=== PATIENT | female | born 1990 | race Caucasian/White ===

== ENCOUNTER 2018-09-15 07:02 | Inpatient (IN) | payer MEDICAID ==
[2018-09-15 07:38] LABS: APPEARANCE,URINE TURBID; BILIRUBIN,URINE NEGATIVE (NEGATIVE); COLOR,URINE YELLOW; GLUCOSE, URINE NEGATIVE (NEGATIVE); KETONES,URINE 20 mg/dL (NEGATIVE); LEUKOCYTE ESTERASE,URINE MODERATE (NEGATIVE); NITRITE,URINE NEGATIVE (NEGATIVE); PROTEIN,URINE 100 mg/dL (NEGATIVE); URINE SPECIFIC GRAVITY 1.018; UROBILINOGEN,URINE NEGATIVE mg/dL (<2.0)
[2018-09-15 07:58] LABS: URINE AMPHETAMINES SCREEN NEGATIVE; URINE BARBITURATES SCREEN NEGATIVE; URINE BENZODIAZEPINES SCREEN NEGATIVE; URINE MARIJUANA (THC) SCREEN NEGATIVE; URINE METHADONE SCREEN NEGATIVE; URINE PHENCYCLIDINE SCREEN NEGATIVE
[2018-09-15 08:08] LABS: URINE COCAINE SCREEN UNCONFIRMED POSITIVE
[2018-09-15] MEDS: RINGERS SOLUTION,LACTATED 1,000 ML IV PRN ×3 (08:27→13:47)
[2018-09-15] MEDS ORDERED: ONDANSETRON HCL INJ/PF 4 MG/2 ML SDV ONE (08:33)
[2018-09-15] MEDS ORDERED: MAG HYDROX/AL HYDROX/SIMETH SUSP 30 ML UDCUP ONE ×2 (09:02→17:57)
[2018-09-15] MEDS ORDERED: MAG HYDROX/AL HYDROX/SIMETH SUSP 30 ML UDCUP PO ONE (09:03)
[2018-09-15] MEDS ORDERED: NALBUPHINE HCL INJ 10 MG/1 ML AMPULE ONE (09:32)
[2018-09-15 09:39] LABS: ABSOLUTE MONOCYTES (AUTO) 1.2 10^3/uL (0.1-1.4); BASOPHILS % (AUTO) 0.1 % (0-2); HEMATOCRIT 34.5 % (36.0-47.0); HEMOGLOBIN 11.8 g/dL (12.0-15.5); LYMPHOCYTES % (AUTO) 6.8 % (13-45); MEAN CORPUSCULAR HEMOGLOBIN 30.9 pg (27.0-33.4); MEAN CORPUSCULAR HGB CONC 34.3 g/dL (32.0-36.0); MEAN CORPUSCULAR VOLUME 90 fl (80-97); MONOCYTES % (AUTO) 7.8 % (3-13); PLATELET COUNT 220 10^3/uL (150-450); RED BLOOD COUNT 3.83 10^6/uL (3.72-5.28); RED CELL DISTRIBUTION WIDTH 13.2 % (11.5-14.0); SEGMENTED NEUTROPHILS % (AUTO) 85.3 % (42-78); TOTAL CELLS COUNTED % (AUTO) 100 %; WHITE BLOOD COUNT 15.2 10^3/uL (4.0-10.5)
[2018-09-15 10:29] LABS: RUBELLA INTERPRETATION POSITIVE
[2018-09-15] MEDS ORDERED: MISOPROSTOL 0.2 MG TABLET ONE (12:11)
[2018-09-15] MEDS ORDERED: OXYTOCIN 10 UNIT/ML VIAL ONE (12:11)
[2018-09-15] MEDS ORDERED: LIDOCAINE 1% INJ-PF (10 MG/ML) 30 ML SDV ONE (12:11)
--- NOTE | 2018-09-15 12:11 | Admission Physical ---
Datetime Report Generated by CPN: 09/15/2018 12:10 CURRENT ADMISSION Chief Complaint: Uterine Contractions Indication for Induction: Not Applicable Admit Impression : Term, Intrauterine ; Active Labor Admit Plan: Admit to Unit; Initiate Labor Protocol ALLERGIES Medication Allergies: Yes Medication Allergies: Sulfa (Sulfonamide Antibiotics) (09/15/2018) Latex: No Latex Allergies Food Allergies: n/a Environmental Allergies: n/a OBSTETRICAL HISTORY EDC: 09/20/2018 00:00 : 7 Para: 3 Term: 2 : 0 SAB: 2 IAB: 1 Ectopic: 0 Livin Cesareans: 0 VBACs: 0 Multiple Births: 0 Gestational Diabetes: No Rh Sensitization: No Incompetent Cervix: No JACKIE: No Infertility: No ART Treatment: No Uterine Anomaly: No IUGR: No Hx Previous C/S: No Macrosomia: No Hx Loss/Stillborn: No PIH: No Hx : No Placenta Previa/Abruption: No Depression/PP Depression: No PTL/PROM: No Post Hemorrhage: No Current Procedures: Ultrasound Obstetrical History Comments: G1- term G2- term G3- SAB G4- molar G5- current SEE RECORDS Alcohol: No Marijuana : No Marijuana Comments: pt has positive THC 04/21/2018 Cocaine: Yes Last Used: 09/12/18 Previous Treatment: None Cocaine Comments: positive cocaine in urine 09/15/18, pt states that she tried it for the 1st time. Other Illicit Drugs: No Cigarettes: Never Smoker. 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 early adderall exposure (Annotations: Data stored by [facility] on behalf of user) INFECTIOUS HISTORY Gonorrhea: No Genital Herpes: Yes Chlamydia: No Tuberculosis: No Syphilis: No Hepatitis: No HIV/AIDS Exposure: No Rash or Viral Illness: No HPV: Yes PHYSICAL EXAM General: Normal HEENT: Normal Neurologic: Normal Thyroid: Normal Heart: Normal Lungs: Normal Breast: Normal Back: Normal Abdomen: Normal Genitourinary Exam: Normal Extremities: Normal DTRs: Normal Pelvic Type: Adequate Vital Signs: Reviewed; Within Normal Limits VAGINAL EXAM Dilatation: 2 Effacement: 60 Station: -3 Contraction Comments: q 2-5 min FETUS A EGA: 39.2 Monitoring: External US FHR- Baseline: 120s Variability: Moderate 6-25bpm Accelerations: 15X15 Decelerations: Early FHR Category: Category I Admit Comment: Pt admits to cocaine use prior to arrival. She has a h/o marijuana use also. She has PNC at [place], [place]. GBS unknown. SROM shortly after arrival--clear. PLANS FOR LABOR AND DELIVERY Labor and Delivery: None Pain Management: Medications Feeding Preference: Breast Benefit of Breast Feed Discussed: Yes Circumcision: N/A INFORMED CONSENT Signature: with User ID: [email or web address]
[2018-09-15] MEDS ORDERED: OXYTOCIN/NORMAL SALINE 20 UNIT/1,000 ML RTUINJ ONE (12:12)
[2018-09-15] MEDS ORDERED: BUPIVACAINE HCL/NS/PF 125 MG/100 ML RTUINJ EPI ONE (12:52)
[2018-09-15] MEDS ORDERED: PHENYLEPHRINE HCL INJ/PF 10 MG/1 ML SDV ONE (12:52)
[2018-09-15] MEDS ORDERED: EPHEDRINE SULFATE INJ 50 MG/1 ML AMPULE ONE (12:52)
[2018-09-15] MEDS ORDERED: LIDOCAINE 1.5%/EPINEPHRINE INJ-PF 30 ML SDV ONE (12:52)
[2018-09-15] MEDS ORDERED: BUPIVACAINE HCL 0.25 % INJ/PF (2.5 MG/1 ML) 30 ML VIAL ONE (12:52)
[2018-09-15] MEDS ORDERED: OXYTOCIN/NORMAL SALINE 20 UNIT/1,000 ML RTUINJ IV PRN (16:45)
[2018-09-15] MEDS ORDERED: ZOLPIDEM TARTRATE 5 MG TABLET PO PRN (16:45)
[2018-09-15] MEDS ORDERED: MEASLES,MUMPS&RUBELLA VACC/PF 0.5 ML VIAL SUBCUT PRN (16:45)
[2018-09-15] MEDS ORDERED: DIBUCAINE 1% OINTMENT 28 GM TP PRN (16:45)
[2018-09-15] MEDS ORDERED: BENZOCAINE/MENTHOL AEROSOL SPRAY 56 ML TOP PRN (16:45)
[2018-09-15] MEDS ORDERED: DIPH/PERTUSS(ACELL)/TETANUS VAC/PF 0.5 ML SYR (>=10YO) IM PRN (16:45)
[2018-09-15] MEDS ORDERED: AZITHROMYCIN INJ 500 MG VIAL IV ONE ×2 (17:13→18:30)
[2018-09-15] MEDS ORDERED: IBUPROFEN 800 MG TABLET ONE (17:13)
[2018-09-15] MEDS ORDERED: FERROUS SULFATE 325 MG TABLET PO SCH (18:00)
--- NOTE | 2018-09-15 19:28 | Delivery Summary ---
Del Sum A-C Datetime Report Generated by CPN: 09/15/2018 19:28 DELIVERY PERSONNEL DELIVERY PERSONNEL: [id number] Delivery Doctor:: Mikayla Pulido MD Labor and Delivery Nurse:: Charisma Cardoza RNhydraulic auto jack mechanic Nurse:: Jeaneth Parikh RN Anatomy And Physiology Instructor/MAGAZINE HAND: Fifi Olivera, ENVIRONMENTAL COMPLIANCE OFFICER MATERNAL INFORMATION Delivery Anesthesia: Epidural Medications After Delivery: Pitocin Drip 20 Units/1000ml NSS Estimated Blood Loss (ml): 200 Maternal Complications: None Provider Comments: of a viable female at 1626 with an OA with nuchal cord x 1 presentation; APGARS 8, 9; bilateral periurethral lacs LABOR SUMMARY EDC: 09/20/2018 00:00 No. Babies in Womb: 1 Attempted: Yes Labor Anesthesia: Epidural LABOR INFORMATION Reason for Induction: Not Applicable Onset of Labor: 09/15/2018 01:00 Complete Dilatation: 09/15/2018 16:18 Oxytocin: N/A Group B Beta Strep: unknown Steroids Given: None Reason Steroids Not Administered: Not Applicable MEMBRANES Membranes Rupture Method: Spontaneous Rupture of Membranes: 09/15/2018 11:52 Length of Rupture (hr): 4.57 Amniotic Fluid Color: Clear Amniotic Fluid Amount: Moderate Amniotic Fluid Odor: Normal STAGES OF LABOR Stage 1 hr: 15 Stage 1 min: 18 Stage 2 hr: 0 Stage 2 min: 8 Stage 3 hr: 0 Stage 3 min: 4 Total Time in Labor hr: 15 Total Time in Labor min: 30 VAGINAL DELIVERY Episiotomy: None Laceration #1: Periurethral Laceration Extension #1: First Degree Laceration #2: Periurethral Laceration Extension #2: Second Degree Other Laceration: bilateral Laceration Repair: Yes Laceration Repair Note: left periurethral lac repaired with 2-0 chromic Sponge Count Correct: Yes Sharps Count Correct: Yes CSECTION DELIVERY Primary Indication: N/A Secondary Indication: N/A CSection Incidence: N/A Labor: N/A Elective: N/A CSection Incision: N/A BABY A INFORMATION Infant Delivery Date/Time: 09/15/2018 16:26 Method of Delivery: Vaginal Born in Route : No : N/A Forceps: N/A Vacuum Extraction: N/A Shoulder Dystocia : No PRESENTATION/POSITION BABY A Presentation: Cephalic Cephalic Presentation: Vertex Vertex Position: Right Occipital Anterior Breech Presentation: N/A PLACENTA INFORMATION BABY A Placenta Delivery Time : 09/15/2018 16:30 Placenta Method of Delivery: Spontaneous Placenta Status: Delivered SCORES BABY A Heart Rate 1 min: >100 bpm Resp Effort 1 min: Good Cry Reflex Irritability 1 min: Cough or Sneeze or Pulls Away Muscle Tone 1 min: Active Motion Color 1 min: Blue/Pale Resuscitation Effort 1 min: Tactile Stimulation SCORE 1 MIN: 8 Heart Rate 5 min: >100 bpm Resp Effort 5 min: Good Cry Reflex Irritability 5 min: Cough or Sneeze or Pulls Away Muscle Tone 5 min: Active Motion Color 5 min: Body [place], Extremities Blue Resuscitation Effort 5 min: Tactile Stimulation SCORE 5 MIN: 9 INFORMATION BABY A Gestational Age at Delivery: 39.2 Gestational Status: Full Term- 39- 40.6 Weeks Infant Outcome : Liveborn Condition : Stable Sex: Female IDENTIFICATION BABY A Infant Verification Date/Time: 09/15/2018 16:44 ID Band Number: [id number] Mother's Name Verified: Yes RN Verifying Infant: H. Jl, RN/B Baidy RN WEIGHT/LENGTH BABY A Infant Birthweight (gm): 2746 Infant Weight (lb): 6 Weight (oz): 1 Length (in): 19.00 Infant Length (cm): 48.26 CORD INFORMATION BABY A No. Cord Vessels: 3 Nuchal Cord : Around Neck x1, Loose Cord Blood Taken: Yes-For Eval (Mom's Blood Type - or O+) Infant Suction: Mouth; Nose ASSESSMENT BABY A Skin to Skin: Yes BABY B INFORMATION : N/A SIGNATURES Signature: with User ID: [email or web address]
[2018-09-15] MEDS: IBUPROFEN 800 MG TABLET PO SCH (23:46)
[2018-09-15] MEDS: DOCUSATE SODIUM 100 MG CAPSULE PO SCH (23:46)
[2018-09-15] MEDS ORDERED: FAMOTIDINE 20 MG TABLET PO ONE (23:59)
[2018-09-16] MEDS: ACETAMINOPHEN WITH CODEINE #3 TABLET PO PRN ×4 (00:11→19:52)
[2018-09-16] MEDS: IPRATROPIUM/ALBUTEROL 0.5-2.5 MG/3 ML AMPUL NEB PRN ×3 (04:18→16:09)
[2018-09-16] MEDS: IBUPROFEN 800 MG TABLET PO SCH ×3 (06:51→21:23)
[2018-09-16 09:23] LABS: HEMATOCRIT 29.7 % (36.0-47.0); HEMOGLOBIN 10.4 g/dL (12.0-15.5); MEAN CORPUSCULAR HEMOGLOBIN 30.9 pg (27.0-33.4); MEAN CORPUSCULAR HGB CONC 34.9 g/dL (32.0-36.0); MEAN CORPUSCULAR VOLUME 89 fl (80-97); PLATELET COUNT 214 10^3/uL (150-450); RED BLOOD COUNT 3.35 10^6/uL (3.72-5.28); RED CELL DISTRIBUTION WIDTH 13.6 % (11.5-14.0); WHITE BLOOD COUNT 15.5 10^3/uL (4.0-10.5)
[2018-09-16] MEDS: PRENATAL VITAMIN W DHA CAPSULE PO SCH (09:53)
[2018-09-16] MEDS: FAMOTIDINE 20 MG TABLET PO SCH ×2 (09:54→21:22)
[2018-09-16] MEDS: DOCUSATE SODIUM 100 MG CAPSULE PO SCH ×2 (09:54→18:06)
[2018-09-16] MEDS: SENNOSIDES/DOCUSATE 8.6-50 MG 1 EACH TABLET PO SCH (09:54)
--- NOTE | 2018-09-16 10:20 | PDOC PROGRESS REPORT ---
Subjective-OB Progress Note for:: 09/16/18 Subjective: reports bleeding slowing, pain controlled with current meds, denies needs Physical Exam (OB) Vital Signs: Temp Pulse Resp BP Pulse Ox 98.1 F 79 16 105/61 96 09/16/18 07:35 09/16/18 07:35 09/16/18 07:35 09/16/18 07:35 09/16/18 07:35 Intake & Output 09/15/18 09/16/18 09/17/18 06:59 06:59 06:59 Intake Total 756 Balance 756 Weight 59.2 kg - Abdomen Description: Soft, Flat Hernia Present: No Fundal Description: Firm Fundal Height: u/u - u/2 - Abdominal Distension: No distension Tenderness: Nontender - Extremities Lower extremities: Kong's sign - neg Calf: Normal, Nontender Objective-Diagnostic Laboratory: 09/16/18 08:37 09/15/18 09/16/18 09/16/18 08:58 06:50 06:50 WBC Cancelled RBC Cancelled Hgb Cancelled Hct Cancelled MCV Cancelled MCH Cancelled MCHC Cancelled RDW Cancelled Plt Count Cancelled Blood Type A NEGATIVE A NEGATIVE Antibody Screen POSITIVE 09/16/18 08:37 WBC 15.5 H RBC 3.35 L Hgb 10.4 L Hct 29.7 L MCV 89 MCH 30.9 MCHC 34.9 RDW 13.6 Plt Count 214 Blood Type Antibody Screen Assessment and Plan(PN) - Assessment and Plan (1) Normal vaginal delivery Is this a current diagnosis for this admission?: Yes (2) Obstetrical laceration Is this a current diagnosis for this admission?: Yes - Time Spent with Patient Time with patient: Less than 15 minutes Medications reviewed and adjusted accordingly: Yes - Disposition Anticipated Discharge: Home Within: within 24 hours
[2018-09-17] MEDS: IBUPROFEN 800 MG TABLET PO SCH ×2 (05:13→14:02)
[2018-09-17] MEDS: IPRATROPIUM/ALBUTEROL 0.5-2.5 MG/3 ML AMPUL NEB PRN ×2 (07:51→14:48)
[2018-09-17 08:29] VITALS: BP 105/63
--- NOTE | 2018-09-17 08:47 | PDOC PROGRESS REPORT ---
Subjective-OB Progress Note for:: 09/17/18 Subjective: oing well, ready to go home, holding baby, bottle feeding, scant lochia, eating well Physical Exam (OB) Vital Signs: Temp Pulse Resp BP Pulse Ox 97.6 F 75 16 105/63 95 09/17/18 08:29 09/17/18 08:29 09/17/18 08:29 09/17/18 08:29 09/17/18 08:29 Intake & Output 09/16/18 09/17/18 09/18/18 06:59 06:59 06:59 Intake Total 756 300 Balance 756 300 Weight 59.2 kg - PIH/Pre-Eclampsia DTR's: 2 + Clonus: Negative Headache: Absent Epigastric Pain: No Visual Changes: No - Lochia Lochia Amount: Scant < 10 ml Lochia Color: Rubra/Red - Abdomen Description: Soft, Round Hernia Present: No Fundal Description: Firm Fundal Height: u/u - u/2 Objective-Diagnostic Laboratory: 09/16/18 08:37 09/16/18 09/16/18 06:50 08:37 WBC 15.5 H RBC 3.35 L Hgb 10.4 L Hct 29.7 L MCV 89 MCH 30.9 MCHC 34.9 RDW 13.6 Plt Count 214 Blood Type A NEGATIVE 09/15/18 10:30 Vaginal/Anorectal Group B Streptococcus Culture - Final GROUP B BETA HEMOLYTIC STREPTOCOCCUS RECOVERED Assessment and Plan(PN) - Assessment and Plan (1) Obstetrical laceration Is this a current diagnosis for this admission?: Yes (2) Normal vaginal delivery Is this a current diagnosis for this admission?: Yes - Time Spent with Patient Time with patient: Less than 15 minutes Medications reviewed and adjusted accordingly: Yes - Disposition Anticipated Discharge: Home Within: within 24 hours
--- NOTE | 2018-09-17 09:13 | PDOC DISCHARGE SUMMARY ---
Addendum entered and electronically signed by COLTEN COHEN CNM 09/20/18 20:29: Final Diagnosis Discharge Date: 09/20/18 - Final Diagnosis (1) Obstetrical laceration Is this a current diagnosis for this admission?: Yes (2) Normal vaginal delivery Is this a current diagnosis for this admission?: Yes (3) Rh negative status during Is this a current diagnosis for this admission?: Yes (4) Marijuana abuse Is this a current diagnosis for this admission?: Yes (5) Substance abuse Is this a current diagnosis for this admission?: Yes Original Note: Final Diagnosis Discharge Date: 09/17/18 - Final Diagnosis (4) Marijuana abuse Is this a current diagnosis for this admission?: Yes (5) Substance abuse Is this a current diagnosis for this admission?: Yes Discharge Data - Discharge Medication Home Medications: Albuterol Sulfate [Albuterol Sulfate 5mg/1 mL] 1 ml IH PRN PRN 09/15/18 Fluticasone/Salmeterol [Advair 100-50 Diskus 14 Dose/Diskus] 1 inh IH Q12H 09/15/18 Iron 18 mg PO DAILY 09/15/18 Vit,Calc76/Iron/Folic [Prenatabs Rx Tablet] 1 tab PO DAILY 09/15/18 Gestational Age: 39.2 Reason(s) for Admission: Onset of Labor, Group B Strep Positive Admission Note: Substance abuse, cocaine and MJ, GBS urine Procedures: NST, Ultrasound Intrapartum Procedure(s): Spontaneous Vaginal Delivery Complication(s): Laceration-Periurethral Laceration-Degree: 1st - [place] Data Baby 1 Female at 1 minute: 8 at 5 minutes: 9 Weight: 2.75 kg Home with Mother: No Complications: Yes - mother with drug buse - Diagnosis Test Laboratory: Temp Pulse Resp BP Pulse Ox 97.6 F 75 16 105/63 95 09/17/18 08:29 09/17/18 08:29 09/17/18 08:29 09/17/18 08:29 09/17/18 08:29 09/15/18 09/15/18 09/16/18 07:15 08:58 06:50 RBC 3.83 Cancelled Hgb 11.8 L Cancelled Hct 34.5 L Cancelled Urine Opiates Screen NEGATIVE 09/16/18 08:37 RBC 3.35 L Hgb 10.4 L Hct 29.7 L Urine Opiates Screen - Discharge information/Instructions Discharge Activity: Activity As Tolerated, No Lifting Over 10 Pounds, No Lifting/Push/Pulling, Non-Ambulatory Child, Pelvic Rest Discharge Diet: As Tolerated, Regular Disposition: HOME, SELF-CARE [facility]: 2, Weeks
[2018-09-17 10:07] LABS: HEMATOCRIT 33.8 % (36.0-47.0); HEMOGLOBIN 11.6 g/dL (12.0-15.5); MEAN CORPUSCULAR HEMOGLOBIN 30.8 pg (27.0-33.4); MEAN CORPUSCULAR HGB CONC 34.3 g/dL (32.0-36.0); MEAN CORPUSCULAR VOLUME 90 fl (80-97); PLATELET COUNT 252 10^3/uL (150-450); RED BLOOD COUNT 3.77 10^6/uL (3.72-5.28); RED CELL DISTRIBUTION WIDTH 13.6 % (11.5-14.0); WHITE BLOOD COUNT 13.2 10^3/uL (4.0-10.5)
[2018-09-17] MEDS: SENNOSIDES/DOCUSATE 8.6-50 MG 1 EACH TABLET PO SCH (10:35)
[2018-09-17] MEDS: FAMOTIDINE 20 MG TABLET PO SCH (10:35)
[2018-09-17] MEDS: PRENATAL VITAMIN W DHA CAPSULE PO SCH (10:35)
[2018-09-17] MEDS: DOCUSATE SODIUM 100 MG CAPSULE PO SCH (10:35)
[2018-09-17 11:39] LABS: HEPATITIS C VIRUS AB <0.1 s/co ratio (0.0-0.9)
[2018-09-17 13:48] LABS: HEPATITS B SURFACE ANTIGEN Negative (Negative)
== END 2018-09-17 15:40 | disposition home or self-care (01) | DRG 807 ==
LOC: LC 07:02 → LR 11:56 → 2S 19:55
PROVIDERS: ADMIT Obstetrics & Gynecology; ATTEND Obstetrics & Gynecology
PROC: 10E0XZZ Delivery of Products of Conception, External Approach (ICD-10-PCS; principal; 2018-09-15)
PROC: 0UQMXZZ Repair Vulva, External Approach (ICD-10-PCS; 2018-09-15)
PROC: 4A1HXCZ Monitoring of Products of Conception, Cardiac Rate, External Approach (ICD-10-PCS; 2018-09-15)
PROC: 3E0234Z Introduction of Serum, Toxoid and Vaccine into Muscle, Percutaneous Approach (ICD-10-PCS; 2018-09-15)
DX: O99.324 Drug use complicating childbirth (principal); Z37.0 Single live birth; O99.824 Streptococcus B carrier state complicating childbirth; F14.90 Cocaine use, unspecified, uncomplicated; O71.82 Other specified trauma to perineum and vulva; O69.81X0 Labor and delivery complicated by cord around neck, without compression, not applicable or unspecified; F12.10 Cannabis abuse, uncomplicated; Z3A.39 39 weeks gestation of pregnancy; O26.893 Other specified pregnancy related conditions, third trimester; Z67.11 Type A blood, Rh negative; Z88.2 Allergy status to sulfonamides
CPT/HCPCS: 36415; 80307; 80353; 81005; 85025; 85027; 85461; 86592; 86701; 86762; 86803; 86804; 86850; 86870; 86900; 86901; 87077; 87081; 87340; 88307; 94640; 94760; G0480; J0456; J2300; J2370; J2405; J2590; J2790; J3490; J7620